=== PATIENT | male | born 1995 | race Two or more races ===

== ENCOUNTER 2017-01-28 21:08 | Emergency (ER) | payer MEDICAID ==
[~2017-01-28] VITALS: Ht 170.2 cm; Wt 71.7 kg
[~2017-01-28 21:08] MED LIST: IBUPROFEN600 MG ORAL
[2017-01-28] MEDS ORDERED: NKM (21:43)
[2017-01-28 21:53] VITALS: BP 119/76
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
[2017-01-28 22:49] VITALS: BP 127/80
--- NOTE | 2017-01-31 08:09 | Diagnostic Imaging Report ---
Indication: Left hand trauma Technique: XRAY HAND MIN 3V LEFT Comparison: None Findings: Examination is markedly limited secondary to overlying cast. There is a suspected fracture of the fifth metacarpal head. Soft tissue swelling is noted. Impression: Limited examination secondary to overlying cast. Suspected fracture of the fifth metacarpal head. Recommend repeat examination without the cast.
== END 2017-01-28 22:49 | disposition home or self-care (01) ==
LOC: EMR 22:03
DX: S62.307A Unspecified fracture of fifth metacarpal bone, left hand, initial encounter for closed fracture (principal); V49.9XXA Car occupant (driver) (passenger) injured in unspecified traffic accident, initial encounter; Y92.410 Unspecified street and highway as the place of occurrence of the external cause; Y99.8 Other external cause status
CPT/HCPCS: 99283

== ENCOUNTER 2017-08-06 08:17 | Emergency (ER) | payer MEDICAID, OTHER ==
[~2017-08-06] VITALS: Ht 170.2 cm; Wt 72.6 kg
[~2017-08-06 08:17] MED LIST changes: +NKM
[2017-08-06 08:22] VITALS: BP 151/106
[2017-08-06] MEDS ORDERED: LORazepam Inj 2mg/ml 1ml IV ONE (08:30)
[2017-08-06] MEDS ORDERED: Ketorolac 30mg Inj IV ONE (08:30)
--- NOTE | 2017-08-06 08:35 | Emergency Room Report ---
History of Present Illness General Chief Complaint: Chest Pain Source: Patient, Family Member Present Illness HPI The patient presents with left-sided chest pain radiating down his left arm. It started out in [place] when he was camping last weekend. He was seen up there and told that if the pain recurred to come to the emergency department. He feels the pain is 10/10 at this time. He smokes medical marijuana but has no other risk factors. His mother does have some cardiac disease but it's more valvular in nature. The patient feels feverish but denies any fever. He also feels weakness and numbness in his L arm. ++ anxiety. No productive cough. No NVD, rashes, headache. Allergies: Coded Allergies: NO KNOWN DRUG ALLERGIES (Unverified Allergy, Unknown, 01/05/15) Patient History Past Medical History: see triage record Social History: Reports: drug use - THC, Denies: smoking Social History Narrative works sanitation Reviewed Nursing Documentation: PMH: Agreed, PSxH: Agreed Nursing Documentation-PMH Past Medical History: No Stated History Review of Systems All Other Systems: negative except mentioned in HPI Physical Exam Vital Signs Date Time Temp Pulse Resp B/P (MAP) Pulse Ox O2 Delivery O2 Flow Rate FiO2 08/06/17 08:22 76 12 151/106 100 Room Air Sp02 EP Interpretation: reviewed, normal General Appearance: well appearing, no apparent distress, GCS 15 Head: normocephalic Eyes: bilateral eye normal inspection, bilateral eye PERRL ENT: moist mucus membranes Neck: supple Respiratory: lungs clear, normal breath sounds Cardiovascular #1: regular rate, rhythm Cardiovascular #2: 2+ radial (R) Gastrointestinal: normal inspection, normal bowel sounds, non tender, no mass, non-distended Musculoskeletal: back normal, gait/station normal, normal range of motion Neurologic: alert, oriented x3, grossly normal Psychiatric: anxious Skin: normal inspection, warm/dry Medical Decision Making Diagnostic Impression: Primary Impression: Chest pain Qualified Codes: R07.9 - Chest pain, unspecified Additional Impression: Cocaine abuse ER Course The patient presents with left-sided chest pain radiating down his left arm. Substernal. He has factors of smoking THC but aside from that date Renita cardiac illnesses not coronary artery disease. He needs evaluation including EKG, chest x-ray and labs. In addition to that he'll be treated with aspirin and Ativan. EKG below. CXR clear. Labs with + tox. Patient improved with treatment and observation. Discussed + tox. He denies. Told of importance for follow up. Patient stable for outpatient observation and treatment. Laboratory Tests Test 08/06/17 08:36 08/06/17 09:20 White Blood Count 8.8 K/UL (4.8-10.8) Red Blood Count 5.56 M/UL (4.70-6.10) Hemoglobin 17.8 G/DL (14.2-18.0) Hematocrit 48.5 % (42.0-52.0) Mean Corpuscular Volume 87 FL (80-99) Mean Corpuscular Hemoglobin 32.1 PG (27.0-31.0) H Mean Corpuscular Hemoglobin Concent 36.8 G/DL (32.0-36.0) H Red Cell Distribution Width 10.9 % (11.6-14.8) L Platelet Count 203 K/UL (150-450) Mean Platelet Volume 8.4 FL (6.5-10.1) Neutrophils (%) (Auto) 68.1 % (45.0-75.0) Lymphocytes (%) (Auto) 23.9 % (20.0-45.0) Monocytes (%) (Auto) 6.4 % (1.0-10.0) Eosinophils (%) (Auto) 0.9 % (0.0-3.0) Basophils (%) (Auto) 0.8 % (0.0-2.0) Prothrombin Time 10.0 SEC (9.30-11.50) Prothrombin Time INR 1.0 (0.9-1.1) PTT 26 SEC (23-33) Sodium Level 141 mEQ/L (135-145) Potassium Level 3.5 mEQ/L (3.4-4.9) Chloride Level 99 mEQ/L (98-107) Carbon Dioxide Level 27 mEQ/L (20-30) Anion Gap 15 (5-15) Blood Urea Nitrogen 13 mg/dL (7-23) Creatinine 1.0 mg/dL (0.7-1.2) Estimate Glomerular Filtration Rate > 60 mL/min (>60) Glucose Level 95 mg/dL (74-106) Calcium Level 10.3 mg/dL (8.6-10.2) H Total Bilirubin 0.8 mg/dL (0.0-1.2) Aspartate Amino Transferase (AST) 16 U/L (5-40) Alanine Aminotransferase (ALT) 7 U/L (3-41) Alkaline Phosphatase 65 U/L (40-129) Total Creatine Kinase 56 U/L (38-174) Troponin I < 0.30 ng/mL (<=0.30) Pro-B-Type Natriuretic Peptide 5 pg/mL (0-125) Total Protein 8.7 g/dL (6.6-8.7) Albumin 5.2 g/dL (3.5-5.2) Globulin 3.5 g/dL Albumin/Globulin Ratio 1.4 (1.0-2.7) Urine Color Yellow Urine Appearance Cloudy Urine pH 7 (4.5-8.0) Urine Specific [place] 1.015 (1.005-1.035) Urine Protein Negative (NEGATIVE) Urine Glucose (UA) Negative (NEGATIVE) Urine Ketones 3+ (NEGATIVE) H Urine Occult Blood Negative (NEGATIVE) Urine Nitrite Negative (NEGATIVE) Urine Bilirubin Negative (NEGATIVE) Urine Urobilinogen Normal MG/DL (0.0-1.0) Urine Leukocyte Esterase 1+ (NEGATIVE) H Urine RBC 0-2 /HPF (0 - 0) H Urine WBC 0-2 /HPF (0 - 0) Urine Squamous Epithelial Cells Occasional /LPF Urine Amorphous Sediment Many /LPF (NONE) H Urine Bacteria Occasional /HPF (NONE) Urine Opiates Screen Negative (NEGATIVE) Urine Barbiturates Screen Positive (NEGATIVE) H Phencyclidine (PCP) Screen Negative (NEGATIVE) Urine Amphetamines Screen Negative (NEGATIVE) Urine Benzodiazepines Screen Positive (NEGATIVE) H Urine Cocaine Screen Positive (NEGATIVE) H Urine Marijuana (THC) Screen Positive (NEGATIVE) H EKG Diagnostic Results Rate: normal Rhythm: NSR ST Segments: no acute changes - j point elevation Rhythm Strip Diag. Results EP Interpretation: yes Rhythm: NSR, no PVC's, no ectopy Chest X-Ray Diagnostic Results Chest X-Ray Diagnostic Results : Chest X-Ray Ordered: Yes # of Views/Limited/Complete: 1 View Indication: Chest Pain EP Interpretation: Yes Interpretation: no consolidation, no effusion, no pneumothorax, no acute cardiopulmonary disease Impression: No acute disease Electronically Signed by: Signed Ronal Elise MD Last Vital Signs Date Time Temp Pulse Resp B/P (MAP) Pulse Ox O2 Delivery O2 Flow Rate FiO2 08/06/17 12:17 97.2 72 19 125/67 100 Room Air Status: improved Disposition: HOME, SELF-CARE Condition: Improved Scripts Acetaminophen (Tylenol) 325 Mg Tablet 650 MG ORAL Q6H Y for Prn Pain/Headache/Temp > 101, #20 TAB 0 Refills Prov: Ronal Elise M.D. 08/06/17 Ondansetron Odt* (ZOFRAN ODT*) 4 Mg Tab.rapdis 4 MG ORAL Q8H Y for Nausea & Vomiting, #6 TAB 0 Refills Prov: Ronal Elise M.D. 08/06/17 Famotidine (PEPCID) 20 Mg Tablet 20 MG ORAL DAILY, #20 TAB 0 Refills Prov: Ronal Elise M.D. 08/06/17 Lorazepam* (ATIVAN*) 0.5 Mg Tablet 0.5 MG ORAL THREE TIMES A DAY Y for anxiety, #4 TAB Prov: Ronal Elise M.D. 08/06/17 Ronal Elise M.D. Aug 06, 2017 08:35
--- NOTE | 2017-08-06 08:52 | Diagnostic Imaging Report ---
Indication: Pain Technique: XRAY CHEST 1 V Comparison: 01/05/2015. Findings: The cardiomediastinal silhouette is normal. The lungs are clear. There is no evidence of pleural fluid. The bones are unremarkable. Impression: Normal chest.
[2017-08-06 09:11] LABS: TROPONIN I < 0.30 ng/mL (<=0.30)
[2017-08-06 09:12] LABS: ALANINE AMINOTRANSFERASE 7 U/L (3-41); ALBUMIN/GLOBULIN RATIO 1.4 (1.0-2.7); ANION GAP 15 (5-15); ASPARTATE AMINO TRANSFERASE 16 U/L (5-40); CALCIUM 10.3 mg/dL (8.6-10.2); CARBON DIOXIDE 27 mEQ/L (20-30); CHLORIDE 99 mEQ/L (98-107); GLOMERULAR FILTRATION RATE > 60 mL/min (>60); HEMOLYSIS 3; POTASSIUM 3.5 mEQ/L (3.4-4.9); SODIUM 141 mEQ/L (135-145); TOTAL PROTEIN 8.7 g/dL (6.6-8.7)
[2017-08-06 09:14] LABS: BASOPHILS % (AUTO) 0.8 % (0.0-2.0); EOSINOPHILS % (AUTO) 0.9 % (0.0-3.0); LYMPHOCYTES % (AUTO) 23.9 % (20.0-45.0); MEAN CORPUSCULAR HEMOGLOBIN 32.1 PG (27.0-31.0); MEAN CORPUSCULAR HGB CONC 36.8 G/DL (32.0-36.0); MEAN CORPUSCULAR VOLUME 87 FL (80-99); MEAN PLATELET VOLUME 8.4 FL (6.5-10.1); MONOCYTES % (AUTO) 6.4 % (1.0-10.0); NEUTROPHILS % (AUTO) 68.1 % (45.0-75.0); PLATELET COUNT 203 K/UL (150-450); RED BLOOD COUNT 5.56 M/UL (4.70-6.10); RED CELL DISTRIBUTION WIDTH 10.9 % (11.6-14.8); WHITE BLOOD COUNT 8.8 K/UL (4.8-10.8)
[2017-08-06 09:49] VITALS: BP 143/80
[2017-08-06 09:49] LABS: APPEARANCE,URINE CLOUDY; KETONES,URINE 3+ (NEGATIVE); LEUKOCYTE ESTERASE ,URINE 1+ (NEGATIVE); NITRITE,URINE NEGATIVE (NEGATIVE); PH,URINE 7 (4.5-8.0); PROTEIN,URINE NEGATIVE (NEGATIVE); UROBILINOGEN,URINE NORMAL MG/DL (0.0-1.0)
[2017-08-06 09:54] LABS: AMORPHOUS SEDIMENT,UR MANY /LPF; BACTERIA,URINE OCCASIONAL /HPF; RBC,URINE 0-2 /HPF (0 - 0); SQUAMOUS EPITHELIAL CELL,UR OCCASIONAL /LPF (NONE/OCC); WBC,URINE 0-2 /HPF (0 - 0)
[2017-08-06 11:38] VITALS: BP 127/63
[2017-08-06 12:17] VITALS: BP 125/67
[2017-08-06] MEDS ORDERED: PEPCID20 MG ORAL (12:21)
[2017-08-06] MEDS ORDERED: ATIVAN0.5 MG ORAL (12:21)
[2017-08-06] MEDS ORDERED: ZOFRAN ODT4 MG ORAL (12:21)
[2017-08-06] MEDS ORDERED: TYLENOL325 MG ORAL (12:21)
--- NOTE | 2017-08-08 18:38 | Cardiology Report ---
APPROVED REPORT EKG Measurement Heart [id number] NM [id number] Normal sinus rhythm with sinus arrhythmia Normal ECG
== END 2017-08-06 12:25 | disposition home or self-care (01) ==
LOC: EMR 08:32
DX: R07.89 Other chest pain (principal); F14.10 Cocaine abuse, uncomplicated
CPT/HCPCS: 36415; 71010; 80053; 80300; 81003; 82550; 83880; 84484; 85025; 85610; 85730; 93005; 96361; 96374; 96375; 99284; J1885

== ENCOUNTER 2017-10-10 11:36 | Emergency (ER) | payer MEDICAID ==
[~2017-10-10] VITALS: Ht 167.6 cm; Wt 69.4 kg
[~2017-10-10 11:36] MED LIST changes: +ATIVAN0.5 MG ORAL; +PEPCID20 MG ORAL; +TYLENOL325 MG ORAL; +ZOFRAN ODT4 MG ORAL
[2017-10-10 11:56] VITALS: BP 159/101
[2017-10-10 12:35] VITALS: BP 154/84
--- NOTE | 2017-10-10 12:43 | Emergency Room Report ---
History of Present Illness General Chief Complaint: Nausea Source: Patient Present Illness HPI 21YOM with nausea/vomiting, diarrhea and epigastric abd pain since this morning No sick contacts. No foreign travel S/p appendectomy distantly Has had symptoms previously Denies history of acid reflux, GERD Had 2 beers 2 nights go Patient here previously - UTOX grossly positive for significant polysubstance abuse Allergies: Coded Allergies: NO KNOWN DRUG ALLERGIES (Unverified Allergy, Unknown, 01/05/15) Patient History Past Medical History: none Past Surgical History: appy Pertinent Family History: none Immunizations: UTD Reviewed Nursing Documentation: PMH: Agreed, PSxH: Agreed Nursing Documentation-PMH Past Medical History: No History, Except For Hx Hypertension: Yes Review of Systems All Other Systems: negative except mentioned in HPI Physical Exam Vital Signs Date Time Temp Pulse Resp B/P (MAP) Pulse Ox O2 Delivery O2 Flow Rate FiO2 10/10/17 11:45 97.9 82 18 158/105 98 Room Air Sp02 EP Interpretation: reviewed, normal General Appearance: normal inspection, well appearing, no apparent distress, alert, GCS 15, non-toxic, other - Patient not vomiting, is continually spitting into emesis bag Head: normocephalic, atraumatic Eyes: bilateral eye PERRL, bilateral eye EOMI ENT: normal ENT inspection, hearing grossly normal, normal voice Neck: normal inspection, full range of motion, supple, no bony tend Respiratory: normal inspection, lungs clear, normal breath sounds, no respiratory distress, no retraction, no wheezing Cardiovascular #1: regular rate, rhythm, no edema Gastrointestinal: normal inspection, normal bowel sounds, soft, no bruit, non- distended, no guarding, no hernia, no pulsatile mass, no rebound, other - mild epigastric ttp Genitourinary: no CVA tenderness Musculoskeletal: normal inspection, back normal, normal range of motion, Estefany' s Sign negative Neurologic: normal inspection, alert, responsive, speech normal Psychiatric: normal inspection, judgement/insight normal, mood/affect normal Skin: normal inspection, normal color, no rash Medical Decision Making Diagnostic Impression: Primary Impression: Epigastric abdominal pain ER Course Epigastric pain VSS. Afebrile. Mild epigastric ttp No peritonitis S/p appy No history of GB disease History of significant polysubstance abuse Labs: No leuks. H&h stable. LFTs normal Sleeping in stretcher on serial exam No intractable vomiting Patient denies drug use today but did not submit urine DC home Low suspicion for acute bacterial/surgical process requiring additional lab work , imaging, admission and/or surgical evaluation at this time given well appearing, non-focal abd on serial exam, stable vital signs, and tolerating PO. In shared decision making process with patient, understands to return to ER for worsening symptoms and to followup with PMD in reasonable amount of time, 2-3 days. Last Vital Signs Date Time Temp Pulse Resp B/P (MAP) Pulse Ox O2 Delivery O2 Flow Rate FiO2 10/10/17 11:56 98.1 74 22 159/101 100 Room Air Status: improved Disposition: HOME, SELF-CARE Referrals: [facility],REFERR (PCP) TAVON MONSIVAIS M.D. Oct 10, 2017 12:43
[2017-10-10 12:54] LABS: MEAN CORPUSCULAR HEMOGLOBIN 30.2 PG (27.0-31.0); MEAN CORPUSCULAR HGB CONC 35.4 G/DL (32.0-36.0); MEAN CORPUSCULAR VOLUME 85 FL (80-99); MEAN PLATELET VOLUME 8.9 FL (6.5-10.1); PLATELET COUNT 225 K/UL (150-450); RED BLOOD COUNT 5.95 M/UL (4.70-6.10); RED CELL DISTRIBUTION WIDTH 10.2 % (11.6-14.8); WHITE BLOOD COUNT 10.1 K/UL (4.8-10.8)
[2017-10-10 13:12] LABS: ANION GAP 12 mmol/L (5-15); CALCIUM 9.8 MG/DL (8.5-10.1); CARBON DIOXIDE 26 MMOL/L (21-32); CHLORIDE 101 MMOL/L (98-107); GLOMERULAR FILTRATION RATE > 60 mL/min (>60); POTASSIUM 3.7 MMOL/L (3.5-5.1); SODIUM 139 MMOL/L (136-145)
[2017-10-10 13:20] LABS: ALANINE AMINOTRANSFERASE 14 U/L (12-78); ALBUMIN/GLOBULIN RATIO 1.2 (1.0-2.7); ASPARTATE AMINO TRANSFERASE 19 U/L (15-37); LIPASE 72 U/L (73-393); TOTAL PROTEIN 9.5 G/DL (6.4-8.2)
[2017-10-10] MEDS ORDERED: PEPCID40 MG PO (13:32)
[2017-10-10 13:47] LABS: BAND NEUTROPHILS % (MANUAL) 0 % (0-8); BASOPHILS % (MANUAL) 0 % (0-2); EOSINOPHILS % (MANUAL) 0 % (0-3); LYMPHOCYTES % (MANUAL) 15 % (20-45); NEUTROPHILS % (MANUAL) 83 % (45-75); PLATELET ESTIMATE ADEQUATE; PLATELET MORPHOLOGY NORMAL; TOTAL CELLS COUNTED 100
[2017-10-10 13:48] VITALS: BP 142/77
== END 2017-10-10 13:50 | disposition home or self-care (01) ==
LOC: EMR 12:01
DX: R10.13 Epigastric pain (principal); I10 Essential (primary) hypertension
CPT/HCPCS: 36415; 80053; 83690; 85007; 85025; 96361; 96374; 96375; 99284; J2405; S0028

== ENCOUNTER 2018-11-14 19:04 | Emergency (ER) | payer MEDICAID, OTHER ==
[~2018-11-14] VITALS: Ht 167.6 cm; Wt 72.6 kg
[~2018-11-14 19:04] MED LIST changes: +PEPCID40 MG PO
[2018-11-14] MEDS ORDERED: NKM (19:18)
[2018-11-14 19:20] VITALS: BP 126/77
[2018-11-14] MEDS ORDERED: Morphine Sulfate 4mg/ml Inj (IV/IM USE ONLY) IVP ONE (19:30)
[2018-11-14] MEDS ORDERED: LORazepam Inj 2mg/ml 1ml ONE (19:38)
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
[2018-11-14] MEDS ORDERED: LORazepam Inj 2mg/ml 1ml IV ONE (19:45)
[2018-11-14 19:52] LABS: BASOPHILS % (AUTO) 0.4 % (0.0-2.0); HEMATOCRIT 44.2 % (42.0-52.0); HEMOGLOBIN 15.4 G/DL (14.2-18.0); MEAN CORPUSCULAR VOLUME 78 FL (80-99); MONOCYTES % (AUTO) 4.3 % (1.0-10.0); NEUTROPHILS % (AUTO) 82.3 % (45.0-75.0); PLATELET COUNT 227 K/UL (150-450); RED BLOOD COUNT 5.66 M/UL (4.70-6.10); RED CELL DISTRIBUTION WIDTH 11.4 % (11.6-14.8); WHITE BLOOD COUNT 8.3 K/UL (4.8-10.8)
[2018-11-14 20:02] LABS: APPEARANCE,URINE CLEAR; BILIRUBIN, URINE NEGATIVE (NEGATIVE); COLOR,URINE AMBER; GLUCOSE, URINE (UA) NEGATIVE (NEGATIVE); KETONES,URINE NEGATIVE (NEGATIVE); LEUKOCYTE ESTERASE ,URINE 1+ (NEGATIVE); NITRITE,URINE NEGATIVE (NEGATIVE); PH,URINE 6.5 (4.5-8.0); PROTEIN,URINE 1+ (NEGATIVE); UROBILINOGEN,URINE NORMAL MG/DL (0.0-1.0)
[2018-11-14 20:07] LABS: ANION GAP 11 mmol/L (5-15); BLOOD UREA NITROGEN 9 mg/dL (7-18); CALCIUM 9.7 MG/DL (8.5-10.1); CARBON DIOXIDE 26 MMOL/L (21-32); CHLORIDE 100 MMOL/L (98-107); CREATININE 0.8 MG/DL (0.55-1.30); POTASSIUM 3.3 MMOL/L (3.5-5.1); SODIUM 137 MMOL/L (136-145)
[2018-11-14 20:10] LABS: ALANINE AMINOTRANSFERASE 14 U/L (12-78); ALBUMIN 4.4 G/DL (3.4-5.0); ALBUMIN/GLOBULIN RATIO 0.8 (1.0-2.7); ALKALINE PHOSPHATASE 147 U/L (46-116); ASPARTATE AMINO TRANSFERASE 16 U/L (15-37); BILIRUBIN,TOTAL 0.7 MG/DL (0.2-1.0)
[2018-11-14] MEDS ORDERED: VALIUM5 MG ORAL (20:41)
[2018-11-14] MEDS ORDERED: ZOFRAN4 MG ORAL (20:41)
[2018-11-14 21:28] VITALS: BP 126/77
--- NOTE | 2018-11-15 09:04 | Diagnostic Imaging Report ---
Indication: Abdominal pain, acute onset Technique: Spiral acquisitions obtained through the abdomen and pelvis. No oral contrast utilized, per emergency room physician request No IV contrast utilized, per referring physician request.. Multiplanar reconstructions were generated. Total dose length product 637.75 mGycm. CTDIvol(s) 12.33 mGy. Dose reduction achieved using automated exposure control Comparison: None Findings: The appendix is not definitely visualized. There is a right lower quadrant scar that could indicate prior appendectomy.. No evidence of acute appendicitis demonstrated. Equivocal mild thickening of the descending colon and sigmoid colon wall is probably just an artifact of under distention. No evidence of diverticulosis or diverticulitis. No small bowel distention. No free or loculated intraperitoneal gas or fluid. Distal esophagus, stomach, duodenum are unremarkable. Lack of IV contrast limits assessment of the solid organs. The liver, gallbladder, bile ducts, pancreas, spleen, adrenals, left kidney are unremarkable. The right kidney demonstrates a 2 mm upper pole calyceal calculus. No ureteral calculi demonstrated. No hydronephrosis or hydroureter. No retroperitoneal or mesenteric mass or adenopathy. Surgical hardware is seen reducing old healed right hip fracture. The bones are unremarkable otherwise. The included lung bases are clear. Impression: No acute abnormality Visualized appendix, possibly surgically absent. No evidence of appendicitis 2 mm nonobstructive right upper pole renal calculus Evidence of prior right hip surgery This agrees with the preliminary interpretation provided overnight by [facility] teleradiology service. The CT scanner at [facility] is accredited by the [employer] and the scans are performed using protocols designed to limit radiation exposure to as low as reasonably achievable to attain images of sufficient resolution adequate for diagnostic evaluation.
== END 2018-11-14 21:29 | disposition home or self-care (01) ==
LOC: EMR 20:41 → CANBEDREQ 20:49 → EMR 21:29
DX: K52.9 Noninfective gastroenteritis and colitis, unspecified (principal); F41.9 Anxiety disorder, unspecified; I10 Essential (primary) hypertension; Z90.49 Acquired absence of other specified parts of digestive tract
CPT/HCPCS: 36415; 74176; 80053; 81003; 83690; 85025; 96361; 96374; 96375; 99284; J2270; J2405

== ENCOUNTER 2020-04-03 04:02 | Emergency (ER) | payer OTHER ==
[~2020-04-03] VITALS: Ht 170.2 cm; Wt 65.8 kg
[~2020-04-03 04:02] MED LIST changes: +VALIUM5 MG ORAL; +ZOFRAN4 MG ORAL
[2020-04-03] MEDS ORDERED: PROTONIX40 MG ORAL (04:22)
[2020-04-03] MEDS ORDERED: SUCRALFATE1 GM ORAL (04:22)
--- NOTE | 2020-04-03 04:23 | Emergency Room Report ---
History of Present Illness General Chief Complaint: Vomiting Source: Patient Present Illness HPI This is a 24-year-old male with a history of reflux. He said is been getting worse in the last month or so. Been taking Prilosec once a day and is not helping. He also has epigastric pain from vomiting. Tonight he vomited and was shaky and could not fall back to sleep despite came in. Pain is epigastric area. No radiation. Pain is 7 out of 10. Described a skin gnawing sensation. Denies any recent alcohol or drugs. No fever chills but no diarrhea. Vomiting is nonbloody nonbilious. Nothing made it better. Nothing made it worse. Allergies: Coded Allergies: NO KNOWN DRUG ALLERGIES (Unverified Allergy, Unknown, 01/05/15) COVID-19 Screening Contact w/high risk pt: No Recent Travel to affected area: No Experienced COVID-19 symptoms?: No Patient History Past Surgical History: none Pertinent Family History: none Social History: Reports: drug use Immunizations: other Reviewed Nursing Documentation: PMH: Agreed; PSxH: Agreed Nursing Documentation-PMH Hx Hypertension: Yes Hx Gastrointestinal Problems: Yes Hx Neurological Problems: Yes - hernia Review of Systems Eye: Denies: eye pain, blurred vision ENT: Denies: ear pain, nose congestion, throat swelling Respiratory: Denies: cough, shortness of breath Cardiovascular: Denies: chest pain, palpitations Gastrointestinal: Reports: abdominal pain, nausea, vomiting; Denies: diarrhea Musculoskeletal: Denies: back pain, joint pain Skin: Denies: rash Neurological: Denies: headache, numbness Endocrine: Denies: increased thirst, increased urine Hematologic/Lymphatic: Denies: easy bruising All Other Systems: negative except mentioned in HPI Physical Exam Vital Signs Date Time Temp Pulse Resp B/P (MAP) Pulse Ox O2 Delivery O2 Flow Rate FiO2 04/03/20 04:07 97.9 71 17 141/101 (114) 98 Room Air Vitals unremarkable Sp02 EP Interpretation: reviewed, normal General Appearance: well appearing, no apparent distress, alert Head: normocephalic, atraumatic Eyes: bilateral eye PERRL, bilateral eye EOMI ENT: hearing grossly normal, normal pharynx Neck: full range of motion, supple, no meningismus Respiratory: chest non-tender, lungs clear, normal breath sounds Cardiovascular #1: regular rate, rhythm, no murmur Gastrointestinal: normal bowel sounds, non tender, no mass, no organomegaly, no bruit, non-distended Musculoskeletal: back normal, normal range of motion, gait/station normal Psychiatric: mood/affect normal Medical Decision Making Diagnostic Impression: Primary Impression: PUD (peptic ulcer disease) ER Course Patient presents with symptom consistent with peptic ulcer disease. No evidence of an acute abdomen. He is tolerating p.o. here. No guarding or rebound. No obstruction. Will discharge home. Last Vital Signs Date Time Temp Pulse Resp B/P (MAP) Pulse Ox O2 Delivery O2 Flow Rate FiO2 04/03/20 04:07 97.9 71 17 141/101 (114) 98 Room Air Status: improved Disposition: HOME, SELF-CARE Condition: Stable Scripts Sucralfate* (CARAFATE*) 1 Gm Tablet 1 GM ORAL FOUR TIMES A DAY, #120 TAB Prov: Julito Singh MD 04/03/20 Pantoprazole* (PROTONIX*) 40 Mg Tablet. 40 MG ORAL DAILY, #30 TAB Prov: Julito Singh MD 04/03/20 [address]errals: [facility],REFERRING (PCP) Additional Instructions: Follow-up your doctor in 7 days. You may benefit from referral to see a GI doctor for endoscopy. Avoid caffeine, nicotine, aspirin, NSAIDs ( Motrin, Advil , Naprosyn, Aleve, etc.). Return if symptoms worsen. Julito Singh MD April 03, 2020 04:23
[2020-04-03 04:29] VITALS: BP 141/101
[2020-04-03] MEDS ORDERED: Pantoprazole Inj IVP ONE (04:30)
[2020-04-03] MEDS ORDERED: Lidocaine 2% Visc 15ml soln ORAL ONE (04:30)
[2020-04-03] MEDS ORDERED: Mylanta II UD 30ml ORAL ONE (04:30)
[2020-04-03 04:52] VITALS: BP 134/87
== END 2020-04-03 04:52 | disposition home or self-care (01) ==
LOC: EMR 04:18
DX: K27.9 Peptic ulcer, site unspecified, unspecified as acute or chronic, without hemorrhage or perforation (principal); I10 Essential (primary) hypertension
CPT/HCPCS: S0164; Z7502; 99282